=== PATIENT | female | born 2000 ===

== ENCOUNTER 2023-02-11 15:41 | Outpatient (BNV) | payer MEDICAID, SELFPAY | END 2023-02-14 09:00 | PROVIDERS: Admitting Provider Psychiatry & Neurology Psychiatry; PCP Internal Medicine; Visit Provider Internal Medicine | DX: I45.81 Long QT syndrome (principal) | CPT/HCPCS: 93010 ==

== ENCOUNTER 2023-02-11 15:41 | Inpatient (IN) | payer OTHER, SELFPAY ==
[2023-02-11 16:03] VITALS: BP 128/96; PULSE 88; RESP 18; TEMP 36.6; O2SAT 96
--- NOTE | 2023-02-11 18:47 | PC.ADMIT ---
Meche arrived to the unit at 1550, she signed a conditional voluntary. Sharps check done by junior copywriter and female RN. Patient appears internally preoccupied, self dialoguing, when asked how she felt she continue self dialoguing, junior copywriter had to ask her twice before she responded Fine. She reports endorsing depression rated it a 6/10, she reports AVH when asked to elaborate stated Right now they are just talking, when asked if she had any thoughts of wanting to hurt self stated No, verbalized to look for staff if thoughts occur. Throughout the assessment junior copywriter had to ask the questions multiple times as patient is self dialoguing and mumbling. Per assessment patient was evaluated at her home by N after mother requested an assessment. Per assessment patient stopped taking her medications, has not been sleeping, loud self dialoguing and reported command AH telling her to hurt herself.
[2023-02-11] MEDS: hydrOXYzine HCL 25 MG TABLET PO (20:44)
[2023-02-11] MEDS: OLANZapine 5 MG TABLET PO (20:44)
[2023-02-11] MEDS: traZODone HCL 50 MG TABLET PO (20:44)
[2023-02-12 06:00] VITALS: BP 115/57; PULSE 108; RESP 18; O2SAT 97
[2023-02-12 09:15] LABS: Estimated Average Glucose 100 mg/dL; Hemoglobin A1c % 5.1 % (<6.0)
[2023-02-12 09:23] LABS: Cholesterol 173 mg/dL (<200); HDL Cholesterol 37 mg/dL (>40); LDL Cholesterol Calculated 120 mg/dL (<100); Triglycerides 83 mg/dL (<150)
--- NOTE | 2023-02-12 11:31 | HO.PM.IMCN ---
History of Present Illness Data of Consult Service Date: 02/12/23 Requesting physician: Crow Fregoso Primary Care Provider: Nicki Olson MD HPI Reason for consult: medical H&P 22-year-old female without any known significant past medical history admitted to Psychiatry from [facility] ED with consult placed hospitalist service for medical H and P. The patient is engaged in self dialogue and disorganized, and is difficult to redirect, unsure if she is experiencing hallucinations so unsure if history is accurate from patinet. Did review [facility] ED report which did not note any PMH or known psychiatric history. Apparently would not provide any history in the ED. Hematology studies in the ED WNL. Renal function and electrolytes normal. GLucose normal. UTox negative. UA with 2+ leukocytes, negative nitrites, 3+ blood, trace ketones, slightly positive for urinary sediment, and 2+ bacteria. Of note there were >150 squamous epithelial cells. She was not given an abx at [facility]. Called and spoke with ED charge nurse and UC resulted with mixed skin sachin. She does not freely offer any complaints but when asked, does state she has increased urinary frequency and urgency. There does not appear to be any other acute medical issues at this time. Review of Systems Review of Systems: General: No fevers, malaise, unintentional weight loss HEENT: No blurred vision, diplopia. No sore throat, nasal congestion, rhinorrhea, sinus pain, ear pain Cardiovascular: No chest pain, palpitations, or leg edema Respiratory: No shortness of breath, wheezing, cough GI: No abdominal pain, nausea, vomiting, diarrhea : No dysuria, hematuria. +increased urinary frequency, +urgency MSK: No myalgia, back pain Neuro: No headaches, weakness, paresthesias Skin: No rashes or lesions [facility] Medical History No pertinent past medical history Social History Household Members: Unknown / Unable to assess Housing: House Do you presently have visiting nurse or other home services: No Patient Tobacco Use Status: Never used Tobacco Smoked in Last 30 Days: No Patient Interested in Nicotine Replacement: No Patient Given Instructions on How to Stop Smoking: No Second Hand Smoke Exposure: No Use of substances other than those prescribed or required for medical reasons: No Currently Displaying Signs/Symptoms of Drug Intoxication Withdrawal: No Any prior treatment program specific to substance use: No Have you been hit, kicked, punched, or otherwise hurt by someone within the past year? If so, by whom?: No Do you feel safe in your current relationship?: No Current Relationship Is there a partner from a previous relationship who is making you feel unsafe now?: No Are you made to feel afraid or neglected: No Spiritual Healthcare Practices: Shinto Denominational Healthcare Practices: Restorationist Cultural Healthcare Practices: Shinto Advance Directives: No Advance Directives Information Provided: Yes Do you have thoughts of harming others: None Do you have a plan to hurt others: No Plan Recently lost weight without trying: Unsure Eating poorly because of decreased appetite: Yes Nutrition Risks: No Nutritional Risk Patient : No : No Poor oral hygiene: No Meds Allergies Allergy/AdvReac Type Severity Reaction Status Date / Time No Known Allergies Allergy Verified 02/11/23 17:12 Active Medications: Current Medications Acetaminophen (Acetaminophen 325 Mg Tablet) 650 mg PO Q6H PRN PRN Reason: Headache/Pain Mild Scale (1-3) Al Hydroxide/Mg Hydroxide (Magnesium Hydrox/Alum Hydrox 30 Ml Oral.Susp) 30 ml PO Q6H PRN PRN Reason: Heartburn/Nausea Hydroxyzine HCl (Hydroxyzine Hcl 25 Mg Tablet) 25 mg PO Q6H PRN PRN Reason: Anxiety Last Admin: 02/11/23 20:44 Dose: 25 mg Magnesium Hydroxide (Milk Of Magnesia 30 Ml Oral.Susp) 30 ml PO DAILY PRN PRN Reason: Constipation Nicotine (Nicotine 21 Mg Patch.Td24) 21 mg TRANSDERMA DAILY PRN PRN Reason: smoking cessation Nicotine Polacrilex (Nicotine Polacrilex 2 Mg Gum) 4 mg BUCCAL Q2H PRN PRN Reason: Nicotine Cravings Olanzapine (Olanzapine 5 Mg Tablet) 5 mg PO TID PRN PRN Reason: agitation Last Admin: 02/11/23 20:44 Dose: 5 mg Trazodone HCl (Trazodone Hcl 50 Mg Tablet) 50 mg PO BEDTIME MRX1 PRN PRN Reason: Insomnia Last Admin: 02/11/23 20:44 Dose: 50 mg Home Medications Medication Instructions Recorded Confirmed Last Taken Type lamotrigine 25 mg tablet 50 mg PO DAILY 02/11/23 02/11/23 Unknown History sertraline 50 mg tablet 50 mg PO DAILY 02/11/23 02/11/23 Unknown History triamcinolone acetonide 0.025 % appl topical BID 02/11/23 Unknown History topical cream Physical Exam Vital Signs and Narrative: Vital Signs: Last Vital Signs Temp 97.8 F 02/11/23 16:03 Pulse 108 H 02/12/23 06:00 Resp 18 02/12/23 06:00 BP 115/57 L 02/12/23 06:00 Pulse Ox 97 02/12/23 06:00 O2 Del Method Room Air 02/12/23 06:00 Constitutional - Awake and Alert, No apparent distress Eyes - PERRLA, EOMI Cardiovascular - S1S2, RRR, No edema Respiratory - Normal lung expansion, Normal respiratory effort, No respiratory distress, CTA bilaterally Gastrointestinal - NT / ND; +BS; No rebound or guarding Extremities - no calf tenderness bilaterally, no swelling Musculoskeletal - Normal inspection, normal ROM Skin - Warm/Dry Neurological - Alert & oriented xto self and time. Requires frequent redirection, CN II-XII in tact, 5/5 strength BUE and BLE, symmetric 2+ patellar reflexes, downgoing Babinski Psychological - engaged in self dialogue, disorganized Results Labs Labs: Laboratory Results - last 24 hr 02/12/23 08:54 Estimat Average Glucose 100 Hemoglobin A1c % 5.1 Triglycerides 83 Cholesterol 173 LDL Cholesterol, Calc 120 H HDL Cholesterol 37 L Assessment and Plan (1) Routine medical exam: Status: Acute (2) Increased urinary frequency: Status: Acute Plan 22-year-old female without any known significant past medical history admitted to Psychiatry from [facility] ED with consult placed hospitalist service for medical H and P. #Mood disorder/psychosis -plan per psychiatry #?UTI -UA at [facility] with 2+ leukocytes, negative nitrites, 3+ blood, trace ketones, slightly positive for urinary sediment, 2+ bacteria. However with >150 epith skin cells. UC contaminated with normal sachin -Given she endorses frequency and urgency -Recheck UA/UC, ensure clean catch -Also check urine for gonorrhea/chlamydia using dirty catch -hold any antibiotic therapy for now. Await cultures ED chart reviewed as above. Thank you for allowing me to participate in this consult. Will follow for results. Please not hesitate to reach out with any questions or for any acute medical issues.
[2023-02-12 15:15] LABS: Appearance Urine Clear; Color Urine Yellow; Glucose Urine UA Negative (Negative); Leukocyte Esterase Urine Trace (Negative); Nitrite Urine Negative (Negative); PH 5.5 (5.0-9.0); UMIC TRIGGER UACC YES; Urine Blood Negative (Negative); Urine Ketones Negative (Negative); Urine Protein Negative (Neg-Trace)
[2023-02-12 15:18] LABS: Bacteria Urine None Seen (None Seen); Hyaline Casts Urine 0-2 /LPF (0-2); RBC Urine 0-2 /HPF (0-2); WBC Urine 0-5 /HPF (0-5)
[2023-02-12 16:13] VITALS: BP 133/84; PULSE 74; TEMP 36.5; O2SAT 98
--- NOTE | 2023-02-12 17:18 | PM.PSYDC ---
DS: Providers Provider Date of admission: 02/11/23 15:41 Primary care physician: Nicki Olson MD Consults: 02/11/23 17:12 Consult to Hospitalist Routine Comment: Consulting Provider: Hospitalist Reason For Exam: admission physical DS: Diagnosis Discharge Diagnosis (1) Routine medical exam: Status: Acute (2) Increased urinary frequency: Status: Acute DS: Medications Discharge Medications Home Medications: Home Medications Medication Instructions Recorded Confirmed lamotrigine 25 mg tablet 50 mg PO DAILY 02/11/23 02/11/23 sertraline 50 mg tablet 50 mg PO DAILY 02/11/23 02/11/23 triamcinolone acetonide 0.025 % appl topical BID 02/11/23 topical cream Data Data Completed and Pending Completed studies during hospitalization [Text1]: 02/12/23 02/12/23 08:54 14:57 Estimat Average Glucose 100 Hemoglobin A1c % 5.1 Triglycerides 83 Cholesterol 173 LDL Cholesterol, Calc 120 H HDL Cholesterol 37 L Urine Color Yellow Urine Appearance Clear Urine pH 5.5 Ur Specific [place] 1.020 Urine Protein Negative Urine Glucose (UA) Negative Urine Ketones Negative Urine Blood Negative Urine Nitrite Negative Ur Leukocyte Esterase Trace H Urine RBC 0-2 Urine WBC 0-5 Ur Squamous Epith Cells 3-5 Urine Bacteria None Seen Hyaline Casts 0-2 Chlam trachomat DNA PCR Pending N.gonorrhoeae DNA (PCR) Pending DS: Summary Time Spent with Patient Time attestation: Total time managing care of this patient today ____ minutes. Discharge Plan Discharge Referrals: Nicki Olson MD [Primary Care Provider] - 1 Week Discharge Medications: No Action lamotrigine 25 mg tablet 50 mg PO DAILY triamcinolone acetonide 0.025 % cream TOPICAL BID sertraline 50 mg tablet 50 mg PO DAILY
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
[2023-02-12] MEDS: lamoTRIgine 25 MG TABLET 50 MG PO (19:06)
[2023-02-12] MEDS: traZODone HCL 50 MG TABLET PO (20:12)
[2023-02-12] MEDS: hydrOXYzine HCL 25 MG TABLET PO (20:12)
[2023-02-12] MEDS: OLANZapine 5 MG TABLET PO (20:12)
[2023-02-12] MEDS: Acetaminophen 325 MG TABLET 650 MG PO (20:12)
[2023-02-13 05:53] LABS: CT PCR NOT DETECTED (Not Detect.); NG PCR NOT DETECTED (Not Detect.)
[2023-02-13 08:05] VITALS: BP 127/74; PULSE 86; RESP 16; TEMP 36.5; O2SAT 99
[2023-02-13] MEDS: lamoTRIgine 25 MG TABLET 50 MG PO (08:30)
[2023-02-13] MEDS: Sertraline HCL 50 MG TABLET PO (08:30)
[2023-02-13] MEDS: Acetaminophen 325 MG TABLET 650 MG PO (09:03)
--- NOTE | 2023-02-13 12:17 | PM.EVENT ---
Event Note Date of Service: 02/13/23 Event Note: UA negative for UTI. Patient also tested negative for chlamydia and gonorrhea. There is no indication for any treatment at this time with antibiotics. Time Spent With Patient Time: Total time managing care of this patient today ____ minutes.
[2023-02-13 16:16] VITALS: BP 140/87; PULSE 71; TEMP 36.4; O2SAT 99
--- NOTE | 2023-02-13 18:30 | P.PNPSI_ITS ---
Subjective Subjective Date of Service: 02/13/23 Reason For Visit: crisis Subjective Notes: Conditional Voluntary Healthcare Proxy: No Guardianship: No Medical Problems Affecting Mental Status: No Interim History: Pt appropriate, bright, asks if we can arrange for a chocolate lab service dog . Discussed. She reflected on a previous emotional support dog she had and missing him along with how helpful having this millinery copyist was for her. Visable in milieu,pt met with her mom and team to provide more history. Tolerating medications. 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 Clearly still responding to internal stimuli. Review of records, pt had a Vraylar start at the end of November but did not maintain this dosing. She reports she does not recall it. Medication Compliance: Yes Side effects from medications: No Attending Groups: Intermittent Review of Systems Acute medical concerns: No Medical Review of Systems: unchanged Review of Systems Review of Systems Yes all other systems are reviewed and are negative (denies) Mental Status Exam Mental Status Exam Patient Appearance: Fatigued Patient Orientation: Person, Place, Time and Situation Level of Consciousness: Alert Patient Behavior: Guarded, Talkative, Cooperative, Suspicious, Avoidant and Good Eye Contact Mood Description: Constricted Affect Description: Constricted Patient Cognition Impaired: No Ability to Follow Directions: Good Speech Pattern: Spontaneous Speech Memory Description: Episodic Impaired Hallucinations: Auditory Delusions: Paranoid Ideation and Present Perceptual Disturbances: Depersonalization and Derealization Thought Process: Distracted Thought Content: positive for Perseveration Depressive Symptoms: Thoughts of /Suicide (denies) Judgement: Fair Diagnostics Vital Signs (24Hr): Vital Signs - 24 hr 02/13/23 08:05 02/13/23 16:16 Temperature 97.7 F 97.6 F Pulse Rate 86 71 Respiratory Rate 16 Blood Pressure 127/74 140/87 H Pulse Oximetry 99 99 Oxygen Delivery Method Room Air Room Air Labs Labs: Laboratory Results - last 48 hr 02/12/23 02/12/23 08:54 14:57 Estimat Average Glucose 100 Hemoglobin A1c % 5.1 Triglycerides 83 Cholesterol 173 LDL Cholesterol, Calc 120 H HDL Cholesterol 37 L Urine Color Yellow Urine Appearance Clear Urine pH 5.5 Ur Specific [place] 1.020 Urine Protein Negative Urine Glucose (UA) Negative Urine Ketones Negative Urine Blood Negative Urine Nitrite Negative Ur Leukocyte Esterase Trace H Urine RBC 0-2 Urine WBC 0-5 Ur Squamous Epith Cells 3-5 Urine Bacteria None Seen Hyaline Casts 0-2 Chlam trachomat DNA PCR NOT DETECTED N.gonorrhoeae DNA (PCR) NOT DETECTED Medications Medications Current Medications Acetaminophen (Acetaminophen 325 Mg Tablet) 650 mg PO Q6H PRN PRN Reason: Headache/Pain Mild Scale (1-3) Last Admin: 02/13/23 09:03 Dose: 650 mg Al Hydroxide/Mg Hydroxide (Magnesium Hydrox/Alum Hydrox 30 Ml Oral.Susp) 30 ml PO Q6H PRN PRN Reason: Heartburn/Nausea Hydroxyzine HCl (Hydroxyzine Hcl 25 Mg Tablet) 25 mg PO Q6H PRN PRN Reason: Anxiety Last Admin: 02/12/23 20:12 Dose: 25 mg Lamotrigine (Lamotrigine 25 Mg Tablet) 50 mg PO DAILY [facility] Last Admin: 02/13/23 08:30 Dose: 50 mg Magnesium Hydroxide (Milk Of Magnesia 30 Ml Oral.Susp) 30 ml PO DAILY PRN PRN Reason: Constipation Nicotine (Nicotine 21 Mg Patch.Td24) 21 mg TRANSDERMA DAILY PRN PRN Reason: smoking cessation Nicotine Polacrilex (Nicotine Polacrilex 2 Mg Gum) 4 mg BUCCAL Q2H PRN PRN Reason: Nicotine Cravings Olanzapine (Olanzapine 5 Mg Tablet) 5 mg PO TID PRN PRN Reason: agitation Last Admin: 02/12/23 20:12 Dose: 5 mg Sertraline HCl (Sertraline Hcl 50 Mg Tablet) 50 mg PO DAILY [facility] Last Admin: 02/13/23 08:30 Dose: 50 mg Trazodone HCl (Trazodone Hcl 50 Mg Tablet) 50 mg PO BEDTIME MRX1 PRN PRN Reason: Insomnia Last Admin: 02/12/23 20:12 Dose: 50 mg Allergies Allergies Allergy/AdvReac Type Severity Reaction Status Date / Time No Known Allergies Allergy Verified 02/11/23 17:12 Assessment & Plan Assessment & Plan (1) Schizoaffective disorder: Status: Acute Code(s): F25.9 - Schizoaffective disorder, unspecified (2) PTSD (post-traumatic stress disorder): Status: Acute Code(s): F43.10 - Post-traumatic stress disorder, unspecified Plan 22 yo female, history of probable schizoaffective disorder, PTSD, exhibiting psychotic symptoms and agitation at her home with family. Reports she takes Lamictal/Sertraline which we will initiate today. Plan: Collateral Contact Initiate Lamictal, Sertraline Monitor and probable antipsychotic initiation on 02/1302/13/23 Low carb diet-pt request Abilify 10 mg daily TSH, B12, Folate, EKG Informed Consent: understands Reason for continued inpatient stay Substantial Risk for: harm to self, harm to others, inability to function and rapid decompensation Time Spent With Patient Time: Total time managing care of this patient today ____ minutes.
[2023-02-13] MEDS: hydrOXYzine HCL 25 MG TABLET PO (20:21)
[2023-02-13] MEDS: traZODone HCL 50 MG TABLET PO (20:21)
[2023-02-13] MEDS: OLANZapine 5 MG TABLET PO (20:21)
[2023-02-14] MEDS: lamoTRIgine 25 MG TABLET 50 MG PO (08:36)
[2023-02-14] MEDS: Sertraline HCL 50 MG TABLET PO (08:36)
[2023-02-14] MEDS: ARIPiprazole 10 MG TABLET PO (08:36)
[2023-02-14 09:00] VITALS: BP 135/97; PULSE 111; RESP 16; TEMP 36.6; O2SAT 97
--- NOTE | 2023-02-14 09:00 | ECG_ITS ---
Test Reason : qtc check Blood Pressure : / mmHG Vent. Rate : 084 BPM Atrial Rate : 084 BPM P-R Int : 116 ms QRS Dur : 080 ms QT Int : 368 ms P-R-T Axes : 031 048 029 degrees QTc Int : 434 ms Normal sinus rhythm Normal ECG No previous ECGs available Referred By: Jolie Zapata Electronically Signed By:KESHAWN LANGSTON
[2023-02-14 09:31] LABS: Thyroid Stimulating Hormone 0.84 uIU/mL (0.32-4.0)
--- NOTE | 2023-02-14 09:50 | P.PNPSI_ITS ---
Subjective Subjective Date of Service: 02/14/23 Reason For Visit: crisis Subjective Notes: Conditional Voluntary Interim History: Reviewed with . Patient presents calm, cooperative, friendly but guarded. Patient stated, I feel okay. It's my grandmother's birthday tomorrow and I thought I'd be out by now since I've been going to groups and good . Observed responding to internal stimuli. Patient reports she hears the Devil day negative things to me . denies SI/HI/VH. Medication Compliance: Yes Side effects from medications: No Review of Systems Constitutional: Reports as per HPI Eyes: Reports as per HPI Reports as per HPI Cardiovascular: Reports as per HPI Respiratory: Reports as per HPI Gastrointestinal: Reports as per HPI Genitourinary: Reports as per HPI Musculoskeletal: Reports as per HPI Skin/Breast: Reports as per HPI Reports as per HPI Psychiatric: Reports as per HPI Endocrine: Reports as per HPI Hematologic/Lymphatic: Reports as per HPI Allergic/Immunologic: Reports as per HPI Mental Status Exam Mental Status Exam Narrative: Pt is alert and oriented; behavior is cooperative, friendly and calm, guarded; dressed in casual attire; mood is described as good ; eye contact appropriate; Speech is normal rate, volume and prosody and not pressured; no psychomotor agitation/retardation present; thought process is organized; Thought content is on discharge; denies SI/HI. Observed responding to internal stimuli; states she hears the devil say negative things . denies VH. Diagnostics Vital Signs (24Hr): Vital Signs - 24 hr 02/13/23 16:16 02/14/23 09:00 Temperature 97.6 F 97.8 F Pulse Rate 71 111 H Respiratory Rate 16 Blood Pressure 140/87 H 135/97 H Pulse Oximetry 99 97 Oxygen Delivery Method Room Air Room Air Labs Labs: Laboratory Results - last 48 hr 02/12/23 02/14/23 14:57 08:41 TSH 0.84 Urine Color Yellow Urine Appearance Clear Urine pH 5.5 Ur Specific [place] 1.020 Urine Protein Negative Urine Glucose (UA) Negative Urine Ketones Negative Urine Blood Negative Urine Nitrite Negative Ur Leukocyte Esterase Trace H Urine RBC 0-2 Urine WBC 0-5 Ur Squamous Epith Cells 3-5 Urine Bacteria None Seen Hyaline Casts 0-2 Chlam trachomat DNA PCR NOT DETECTED N.gonorrhoeae DNA (PCR) NOT DETECTED Medications Medications Current Medications Acetaminophen (Acetaminophen 325 Mg Tablet) 650 mg PO Q6H PRN PRN Reason: Headache/Pain Mild Scale (1-3) Last Admin: 02/13/23 09:03 Dose: 650 mg Al Hydroxide/Mg Hydroxide (Magnesium Hydrox/Alum Hydrox 30 Ml Oral.Susp) 30 ml PO Q6H PRN PRN Reason: Heartburn/Nausea Aripiprazole (Aripiprazole 10 Mg Tablet) 10 mg PO DAILY [facility] Last Admin: 02/14/23 08:36 Dose: 10 mg Hydroxyzine HCl (Hydroxyzine Hcl 25 Mg Tablet) 25 mg PO Q6H PRN PRN Reason: Anxiety Last Admin: 02/13/23 20:21 Dose: 25 mg Lamotrigine (Lamotrigine 25 Mg Tablet) 50 mg PO DAILY [facility] Last Admin: 02/14/23 08:36 Dose: 50 mg Magnesium Hydroxide (Milk Of Magnesia 30 Ml Oral.Susp) 30 ml PO DAILY PRN PRN Reason: Constipation Nicotine (Nicotine 21 Mg Patch.Td24) 21 mg TRANSDERMA DAILY PRN PRN Reason: smoking cessation Nicotine Polacrilex (Nicotine Polacrilex 2 Mg Gum) 4 mg BUCCAL Q2H PRN PRN Reason: Nicotine Cravings Olanzapine (Olanzapine 5 Mg Tablet) 5 mg PO TID PRN PRN Reason: agitation Last Admin: 02/13/23 20:21 Dose: 5 mg Sertraline HCl (Sertraline Hcl 50 Mg Tablet) 50 mg PO DAILY [facility] Last Admin: 02/14/23 08:36 Dose: 50 mg Trazodone HCl (Trazodone Hcl 50 Mg Tablet) 50 mg PO BEDTIME MRX1 PRN PRN Reason: Insomnia Last Admin: 02/13/23 20:21 Dose: 50 mg Allergies Allergies Allergy/AdvReac Type Severity Reaction Status Date / Time No Known Allergies Allergy Verified 02/11/23 17:12 Assessment & Plan Assessment & Plan (1) Schizoaffective disorder: Status: Acute Code(s): F25.9 - Schizoaffective disorder, unspecified (2) PTSD (post-traumatic stress disorder): Status: Acute Code(s): F43.10 - Post-traumatic stress disorder, unspecified Plan 22 yo female, history of probable schizoaffective disorder, PTSD, exhibiting psychotic symptoms and agitation at her home with family. Reports she takes Lamictal/Sertraline which we will initiate today. Plan: Collateral Contact Initiate Lamictal, Sertraline Monitor and probable antipsychotic initiation on 02/1302/13/23 Low carb diet-pt request Abilify 10 mg daily TSH, B12, Folate, EKG 02/14: Patient presents calm, cooperative, friendly but guarded. Patient stated, I feel okay. It's my grandmother's birthday tomorrow and I thought I'd be out by now since I've been going to groups and good . Observed responding to internal stimuli. Patient reports she hears the day negative things to me . denies SI/HI/VH. Continue current tx plan. Patient educated on: diagnosis, medication risk/benefits and therapeutic strategies Informed Consent: understands Reason for continued inpatient stay Substantial Risk for: med/psych decompensation Time Spent With Patient Time: Total time managing care of this patient today _30___ minutes.
[2023-02-14 10:29] LABS: Folate 8.7 ng/mL (> or = 4.0); Vitamin B12 554 pg/mL (200-900)
--- NOTE | 2023-02-14 11:17 | MHC.CLN ---
NUTRITION PER PROVIDER CONSULT, PATIENT REQUESTING A LOW CARBOHYDRATE DIET. NO IN-PERSON MEETING PER CONSULT. 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 MENUS BEING COMPLETED ON THE UNIT.
[2023-02-14 17:10] VITALS: BP 128/74; PULSE 112; RESP 16; TEMP 36.4; O2SAT 100
[2023-02-15] MEDS: traZODone HCL 50 MG TABLET PO ×2 (02:08→21:54)
[2023-02-15] MEDS: lamoTRIgine 25 MG TABLET 50 MG PO (08:39)
[2023-02-15] MEDS: Sertraline HCL 50 MG TABLET PO (08:39)
[2023-02-15] MEDS: ARIPiprazole 10 MG TABLET PO (08:39)
[2023-02-15 08:50] VITALS: BP 137/89; PULSE 110; RESP 16; TEMP 36.5; O2SAT 98
--- NOTE | 2023-02-15 11:06 | HO.PSYCHPN ---
Subjective Subjective Date of Service: 02/15/23 Reason For Visit: crisis Subjective Notes: Conditional Voluntary Interim History: Patient was seen and discussed in rounds today. Records and plans were reviewed. She denies any symptoms of depression but continues to be anxious, 05/17. She is medication compliant. No AVH. Disorganized. Questions about Klonopin discussed. No changes were made today Mental Status Exam Mental Status Exam Narrative: In today's visit she is alert, pleasant and cooperative. Normal speech. Some eye contact. Affect is appropriate and constricted. She is observed to respond to internal stimuli but denies any hallucinations. No SI. Cognitively she has organized thought processes. Judgment and Diagnostics Vital Signs (24Hr): Vital Signs - 24 hr 02/14/23 17:10 02/15/23 08:50 Temperature 97.5 F 97.7 F Pulse Rate 112 H 110 H Respiratory Rate 16 16 Blood Pressure 128/74 137/89 Pulse Oximetry 100 98 Oxygen Delivery Method Room Air Room Air Labs Labs: Laboratory Results - last 48 hr 02/14/23 08:41 Vitamin B12 554 Folate 8.7 TSH 0.84 Medications Medications Current Medications Acetaminophen (Acetaminophen 325 Mg Tablet) 650 mg PO Q6H PRN PRN Reason: Headache/Pain Mild Scale (1-3) Last Admin: 02/13/23 09:03 Dose: 650 mg Al Hydroxide/Mg Hydroxide (Magnesium Hydrox/Alum Hydrox 30 Ml Oral.Susp) 30 ml PO Q6H PRN PRN Reason: Heartburn/Nausea Aripiprazole (Aripiprazole 10 Mg Tablet) 10 mg PO DAILY [facility] Last Admin: 02/15/23 08:39 Dose: 10 mg Hydroxyzine HCl (Hydroxyzine Hcl 25 Mg Tablet) 25 mg PO Q6H PRN PRN Reason: Anxiety Last Admin: 02/13/23 20:21 Dose: 25 mg Lamotrigine (Lamotrigine 25 Mg Tablet) 50 mg PO DAILY [facility] Last Admin: 02/15/23 08:39 Dose: 50 mg Magnesium Hydroxide (Milk Of Magnesia 30 Ml Oral.Susp) 30 ml PO DAILY PRN PRN Reason: Constipation Nicotine (Nicotine 21 Mg Patch.Td24) 21 mg TRANSDERMA DAILY PRN PRN Reason: smoking cessation Nicotine Polacrilex (Nicotine Polacrilex 2 Mg Gum) 4 mg BUCCAL Q2H PRN PRN Reason: Nicotine Cravings Olanzapine (Olanzapine 5 Mg Tablet) 5 mg PO TID PRN PRN Reason: agitation Last Admin: 02/13/23 20:21 Dose: 5 mg Sertraline HCl (Sertraline Hcl 50 Mg Tablet) 50 mg PO DAILY [facility] Last Admin: 02/15/23 08:39 Dose: 50 mg Trazodone HCl (Trazodone Hcl 50 Mg Tablet) 50 mg PO BEDTIME MRX1 PRN PRN Reason: Insomnia Last Admin: 02/15/23 02:08 Dose: 50 mg Allergies Allergies Allergy/AdvReac Type Severity Reaction Status Date / Time No Known Allergies Allergy Verified 02/11/23 17:12 Assessment & Plan Assessment & Plan (1) Schizoaffective disorder: Status: Acute Code(s): F25.9 - Schizoaffective disorder, unspecified (2) PTSD (post-traumatic stress disorder): Status: Acute Code(s): F43.10 - Post-traumatic stress disorder, unspecified Plan 22 yo female, history of probable schizoaffective disorder, PTSD, exhibiting psychotic symptoms and agitation at her home with family. Reports she takes Lamictal/Sertraline which we will initiate today. Plan: Collateral Contact Initiate Lamictal, Sertraline Monitor and probable antipsychotic initiation on 02/1302/13/23 Low carb diet-pt request Abilify 10 mg daily TSH, B12, Folate, EKG 02/14: Patient presents calm, cooperative, friendly but guarded. Patient stated, I feel okay. It's my grandmother's birthday tomorrow and I thought I'd be out by now since I've been going to groups and good . Observed responding to internal stimuli. Patient reports she hears the Devil day negative things to me . denies SI/HI/VH. Continue current tx plan. 02/15: Continue current plans and regimen Reason for continued inpatient stay Substantial Risk for: med/psych decompensation Time Spent With Patient Time: Total time managing care of this patient today ____ minutes.
[2023-02-15 18:29] VITALS: BP 131/59; PULSE 86; RESP 18; TEMP 36.6; O2SAT 100
[2023-02-15] MEDS: Acetaminophen 325 MG TABLET 650 MG PO (19:41)
[2023-02-15] MEDS: OLANZapine 5 MG TABLET PO (22:58)
[2023-02-16] MEDS: hydrOXYzine HCL 25 MG TABLET PO (01:30)
[2023-02-16] MEDS: traZODone HCL 50 MG TABLET PO (01:30)
[2023-02-16] MEDS: ARIPiprazole 10 MG TABLET PO (09:58)
[2023-02-16] MEDS: Sertraline HCL 50 MG TABLET PO (09:58)
[2023-02-16] MEDS: lamoTRIgine 25 MG TABLET 50 MG PO (09:58)
[2023-02-16 10:00] VITALS: BP 146/74; PULSE 106; RESP 16; TEMP 36.4; O2SAT 100
--- NOTE | 2023-02-16 11:33 | P.PNPSI_ITS ---
Subjective Subjective Date of Service: 02/16/23 Reason For Visit: crisis Subjective Notes: Conditional Voluntary Interim History: Patient was seen and discussed in rounds today. Records and plans were reviewed. She has been stable, mostly isolative to her room and withdrawn. She does have some self dialogue and having response to internal stimuli. She denies any auditory hallucinations though. She wanted to talk about her sleep which we did and she is sleeping 8 hours and I did not recommend any medication changes which she was wondering about. Review of Systems Review of Systems Yes all other systems are reviewed and are negative Mental Status Exam Mental Status Exam Narrative: In today's visit she is alert, pleasant and cooperative. Normal speech. Some eye contact. Affect is appropriate and constricted. She is observed to respond to internal stimuli but denies any hallucinations. No SI. Cognitively she has organized thought processes. Judgment and Diagnostics Vital Signs (24Hr): Vital Signs - 24 hr 02/15/23 18:29 Temperature 97.9 F Pulse Rate 86 Respiratory Rate 18 Blood Pressure 131/59 L Pulse Oximetry 100 Oxygen Delivery Method Room Air Medications Medications Current Medications Acetaminophen (Acetaminophen 325 Mg Tablet) 650 mg PO Q6H PRN PRN Reason: Headache/Pain Mild Scale (1-3) Last Admin: 02/15/23 19:41 Dose: 650 mg Al Hydroxide/Mg Hydroxide (Magnesium Hydrox/Alum Hydrox 30 Ml Oral.Susp) 30 ml PO Q6H PRN PRN Reason: Heartburn/Nausea Aripiprazole (Aripiprazole 10 Mg Tablet) 10 mg PO DAILY [facility] Last Admin: 02/16/23 09:58 Dose: 10 mg Hydroxyzine HCl (Hydroxyzine Hcl 25 Mg Tablet) 25 mg PO Q6H PRN PRN Reason: Anxiety Last Admin: 02/16/23 01:30 Dose: 25 mg Lamotrigine (Lamotrigine 25 Mg Tablet) 50 mg PO DAILY [facility] Last Admin: 02/16/23 09:58 Dose: 50 mg Magnesium Hydroxide (Milk Of Magnesia 30 Ml Oral.Susp) 30 ml PO DAILY PRN PRN Reason: Constipation Nicotine (Nicotine 21 Mg Patch.Td24) 21 mg TRANSDERMA DAILY PRN PRN Reason: smoking cessation Nicotine Polacrilex (Nicotine Polacrilex 2 Mg Gum) 4 mg BUCCAL Q2H PRN PRN Reason: Nicotine Cravings Olanzapine (Olanzapine 5 Mg Tablet) 5 mg PO TID PRN PRN Reason: agitation Last Admin: 02/15/23 22:58 Dose: 5 mg Sertraline HCl (Sertraline Hcl 50 Mg Tablet) 50 mg PO DAILY [facility] Last Admin: 02/16/23 09:58 Dose: 50 mg Trazodone HCl (Trazodone Hcl 50 Mg Tablet) 50 mg PO BEDTIME MRX1 PRN PRN Reason: Insomnia Last Admin: 02/16/23 01:30 Dose: 50 mg Allergies Allergies Allergy/AdvReac Type Severity Reaction Status Date / Time No Known Allergies Allergy Verified 02/11/23 17:12 Assessment & Plan Assessment & Plan (1) Schizoaffective disorder: Status: Acute Code(s): F25.9 - Schizoaffective disorder, unspecified (2) PTSD (post-traumatic stress disorder): Status: Acute Code(s): F43.10 - Post-traumatic stress disorder, unspecified Plan 22 yo female, history of probable schizoaffective disorder, PTSD, exhibiting psychotic symptoms and agitation at her home with family. Reports she takes Lamictal/Sertraline which we will initiate today. Plan: Collateral Contact Initiate Lamictal, Sertraline Monitor and probable antipsychotic initiation on 02/1302/13/23 Low carb diet-pt request Abilify 10 mg daily TSH, B12, Folate, EKG 02/14: Patient presents calm, cooperative, friendly but guarded. Patient stated, I feel okay. It's my grandmother's birthday tomorrow and I thought I'd be out by now since I've been going to groups and good . Observed responding to internal stimuli. Patient reports she hears the Devil day negative things to me . denies SI/HI/VH. Continue current tx plan. 02/15: Continue current plans and regimen 02/15: Continue current regimen and plans Reason for continued inpatient stay Substantial Risk for: med/psych decompensation Time Spent With Patient Time: Total time managing care of this patient today ____ minutes.
[2023-02-16 18:00] VITALS: BP 98/47; PULSE 102; TEMP 36.6; O2SAT 100
[2023-02-16] MEDS: OLANZapine 5 MG TABLET PO (19:05)
[2023-02-17] MEDS: traZODone HCL 50 MG TABLET PO ×2 (00:57→21:10)
[2023-02-17 08:00] VITALS: BP 102/52; PULSE 106; TEMP 36.5; O2SAT 98
[2023-02-17] MEDS: lamoTRIgine 25 MG TABLET 50 MG PO (09:42)
[2023-02-17] MEDS: ARIPiprazole 10 MG TABLET PO (09:42)
[2023-02-17] MEDS: Sertraline HCL 50 MG TABLET PO (09:42)
[2023-02-17] MEDS: Acetaminophen 325 MG TABLET 650 MG PO ×2 (09:49→19:24)
[2023-02-17 16:00] VITALS: BP 153/82; PULSE 100; TEMP 36.5; O2SAT 94
--- NOTE | 2023-02-17 18:22 | P.PNPSI_ITS ---
Subjective Subjective Date of Service: 02/17/23 Reason For Visit: crisis Subjective Notes: 3 Day Healthcare Proxy: No Guardianship: No Medical Problems Affecting Mental Status: No Interim History: Three day notice to 02/19. Pt planning to live with her boyfriend, Chris, states she will not go to [place]. Mother visited and was able to offer her opinion that she finds pt at baseline. She asked pt when discharged to return to the family home for the holiday season, allow parents to meet her boyfriend, monitor her ongoing recovery, and re-establish her routine. Pt agreed, citing this plan to be solid, reasonable Message left for prescriber, Aditi Kidd [phone]. Medication Compliance: Yes Side effects from medications: No Attending Groups: Intermittent Review of Systems Acute medical concerns: No Medical Review of Systems: unchanged Review of Systems Review of Systems Yes all other systems are reviewed and are negative Mental Status Exam Mental Status Exam Patient Appearance: Appropriate Patient Orientation: Person, Place, Time and Situation Level of Consciousness: Alert Patient Behavior: Cooperative, Anxious, Distractible and Good Eye Contact Mood Description: Anxious, Elated and Apprehensive Affect Description: Apprehensive Patient Cognition Impaired: No Ability to Follow Directions: Good Speech Pattern: Spontaneous Speech Memory Description: Episodic Impaired Hallucinations: None Delusions: Not Present Thought Process: Distracted Thought Content: positive for Circumstantial, positive for Loose Associations and positive for Tangential Depressive Symptoms: Increased Anxiety Judgement: Fair Diagnostics Vital Signs (24Hr): Vital Signs - 24 hr 02/17/23 08:00 Temperature 97.7 F Pulse Rate 106 H Blood Pressure 102/52 L Pulse Oximetry 98 Oxygen Delivery Method Room Air Medications Medications Current Medications Acetaminophen (Acetaminophen 325 Mg Tablet) 650 mg PO Q6H PRN PRN Reason: Headache/Pain Mild Scale (1-3) Last Admin: 02/17/23 09:49 Dose: 650 mg Al Hydroxide/Mg Hydroxide (Magnesium Hydrox/Alum Hydrox 30 Ml Oral.Susp) 30 ml PO Q6H PRN PRN Reason: Heartburn/Nausea Aripiprazole (Aripiprazole 10 Mg Tablet) 10 mg PO DAILY [facility] Last Admin: 02/17/23 09:42 Dose: 10 mg Hydroxyzine HCl (Hydroxyzine Hcl 25 Mg Tablet) 25 mg PO Q6H PRN PRN Reason: Anxiety Last Admin: 02/16/23 01:30 Dose: 25 mg Lamotrigine (Lamotrigine 25 Mg Tablet) 50 mg PO DAILY [facility] Last Admin: 02/17/23 09:42 Dose: 50 mg Magnesium Hydroxide (Milk Of Magnesia 30 Ml Oral.Susp) 30 ml PO DAILY PRN PRN Reason: Constipation Nicotine (Nicotine 21 Mg Patch.Td24) 21 mg TRANSDERMA DAILY PRN PRN Reason: smoking cessation Nicotine Polacrilex (Nicotine Polacrilex 2 Mg Gum) 4 mg BUCCAL Q2H PRN PRN Reason: Nicotine Cravings Olanzapine (Olanzapine 5 Mg Tablet) 5 mg PO TID PRN PRN Reason: agitation Last Admin: 02/16/23 19:05 Dose: 5 mg Sertraline HCl (Sertraline Hcl 50 Mg Tablet) 50 mg PO DAILY [facility] Last Admin: 02/17/23 09:42 Dose: 50 mg Trazodone HCl (Trazodone Hcl 50 Mg Tablet) 50 mg PO BEDTIME MRX1 PRN PRN Reason: Insomnia Last Admin: 02/17/23 00:57 Dose: 50 mg Allergies Allergies Allergy/AdvReac Type Severity Reaction Status Date / Time No Known Allergies Allergy Verified 02/11/23 17:12 Assessment & Plan Assessment & Plan (1) Schizoaffective disorder: Status: Acute Code(s): F25.9 - Schizoaffective disorder, unspecified (2) PTSD (post-traumatic stress disorder): Status: Acute Code(s): F43.10 - Post-traumatic stress disorder, unspecified Plan 22 yo female, history of probable schizoaffective disorder, PTSD, exhibiting psychotic symptoms and agitation at her home with family. Reports she takes Lamictal/Sertraline which we will initiate today. Plan: Collateral Contact Initiate Lamictal, Sertraline Monitor and probable antipsychotic initiation on 02/1302/13/23 Low carb diet-pt request Abilify 10 mg daily TSH, B12, Folate, EKG 02/14: Patient presents calm, cooperative, friendly but guarded. Patient stated, I feel okay. It's my grandmother's birthday tomorrow and I thought I'd be out by now since I've been going to groups and good . Observed responding to internal stimuli. Patient reports she hears the Devil day negative things to me . denies SI/HI/VH. Continue current tx plan. 02/15: Continue current plans and regimen 02/15: Continue current regimen and plans 02/17:TDN 02/19. Continue current regime and plan of care. Informed Consent: further education needed Reason for continued inpatient stay Substantial Risk for: rapid decompensation Time Spent With Patient Time: Total time managing care of this patient today ____ minutes.
[2023-02-18] MEDS: OLANZapine 5 MG TABLET PO (03:42)
[2023-02-18] MEDS: HaloperidoL 5 MG TABLET PO (05:50)
[2023-02-18] MEDS: LORazepam 1 MG TABLET 2 MG PO (05:50)
[2023-02-18 10:35] VITALS: BP 124/70; PULSE 96; RESP 18; TEMP 36.9; O2SAT 98
[2023-02-18] MEDS: ARIPiprazole 10 MG TABLET PO (10:38)
[2023-02-18] MEDS: Sertraline HCL 50 MG TABLET PO (10:38)
[2023-02-18] MEDS: lamoTRIgine 25 MG TABLET 50 MG PO (10:38)
--- NOTE | 2023-02-18 15:56 | HO.PSYCHPN ---
Subjective Subjective Date of Service: 02/18/23 Reason For Visit: crisis Subjective Notes: 3 Day Healthcare Proxy: No Guardianship: No Medical Problems Affecting Mental Status: No Interim History: Team reports a difficult night. Pt requiring prn Olanzapine at 342am and prn Haldol at 550am. Team report pt threw a pitcher and was responding to internal stimuli along with THOM Pt sleeping much of the day today. Denies all sx at this time. Three day notice to 02/19 Medication Compliance: Yes Side effects from medications: Yes (sedation) Attending Groups: No Review of Systems Acute medical concerns: No Medical Review of Systems: unchanged Review of Systems Review of Systems Yes Unobtainable due to mental status Mental Status Exam Mental Status Exam Patient Appearance: Fatigued Patient Orientation: Person, Place, Time and Situation Level of Consciousness: Sedated Patient Behavior: Sedated, Fatigued, Distractible, Isolative and Poor Eye Contact Mood Description: Flat Affect Description: Flat Patient Cognition Impaired: No Ability to Follow Directions: Fair Speech Pattern: Spontaneous Speech Memory Description: Episodic Impaired Hallucinations: Auditory Delusions: Not Present Thought Process: Distracted and Goal Oriented Thought Content: positive for Circumstantial, positive for Goal Oriented, positive for Tangential and positive for Suicidal Ideation (denies) Depressive Symptoms: Insomnia, Increased Irritability, Difficulty Sleeping, Increased Fatigue and Loss of Energy Judgement: Fair Diagnostics Vital Signs (24Hr): Vital Signs - 24 hr 02/17/23 16:00 02/18/23 10:35 Temperature 97.7 F 98.4 F Pulse Rate 100 96 Respiratory Rate 18 Blood Pressure 153/82 H 124/70 Pulse Oximetry 94 98 Oxygen Delivery Method Room Air Room Air Medications Medications Current Medications Acetaminophen (Acetaminophen 325 Mg Tablet) 650 mg PO Q6H PRN PRN Reason: Headache/Pain Mild Scale (1-3) Last Admin: 02/17/23 19:24 Dose: 650 mg Al Hydroxide/Mg Hydroxide (Magnesium Hydrox/Alum Hydrox 30 Ml Oral.Susp) 30 ml PO Q6H PRN PRN Reason: Heartburn/Nausea Aripiprazole (Aripiprazole 10 Mg Tablet) 10 mg PO DAILY [facility] Last Admin: 02/18/23 10:38 Dose: 10 mg Hydroxyzine HCl (Hydroxyzine Hcl 25 Mg Tablet) 25 mg PO Q6H PRN PRN Reason: Anxiety Last Admin: 02/16/23 01:30 Dose: 25 mg Lamotrigine (Lamotrigine 25 Mg Tablet) 50 mg PO DAILY [facility] Last Admin: 02/18/23 10:38 Dose: 50 mg Magnesium Hydroxide (Milk Of Magnesia 30 Ml Oral.Susp) 30 ml PO DAILY PRN PRN Reason: Constipation Nicotine (Nicotine 21 Mg Patch.Td24) 21 mg TRANSDERMA DAILY PRN PRN Reason: smoking cessation Nicotine Polacrilex (Nicotine Polacrilex 2 Mg Gum) 4 mg BUCCAL Q2H PRN PRN Reason: Nicotine Cravings Olanzapine (Olanzapine 5 Mg Tablet) 5 mg PO TID PRN PRN Reason: agitation Last Admin: 02/18/23 03:42 Dose: 5 mg Sertraline HCl (Sertraline Hcl 50 Mg Tablet) 50 mg PO DAILY [facility] Last Admin: 02/18/23 10:38 Dose: 50 mg Trazodone HCl (Trazodone Hcl 50 Mg Tablet) 50 mg PO BEDTIME MRX1 PRN PRN Reason: Insomnia Last Admin: 02/17/23 21:10 Dose: 50 mg Allergies Allergies Allergy/AdvReac Type Severity Reaction Status Date / Time No Known Allergies Allergy Verified 02/11/23 17:12 Assessment & Plan Assessment & Plan (1) Schizoaffective disorder: Status: Acute Code(s): F25.9 - Schizoaffective disorder, unspecified (2) PTSD (post-traumatic stress disorder): Status: Acute Code(s): F43.10 - Post-traumatic stress disorder, unspecified Plan 22 yo female, history of probable schizoaffective disorder, PTSD, exhibiting psychotic symptoms and agitation at her home with family. Reports she takes Lamictal/Sertraline which we will initiate today. Plan: Collateral Contact Initiate Lamictal, Sertraline Monitor and probable antipsychotic initiation on 02/1302/13/23 Low carb diet-pt request Abilify 10 mg daily TSH, B12, Folate, EKG 02/14: Patient presents calm, cooperative, friendly but guarded. Patient stated, I feel okay. It's my grandmother's birthday tomorrow and I thought I'd be out by now since I've been going to groups and good . Observed responding to internal stimuli. Patient reports she hears the Devil day negative things to me . denies SI/HI/VH. Continue current tx plan. 02/15: Continue current plans and regimen 02/15: Continue current regimen and plans 02/17:TDN 02/19. Continue current regime and plan of care. 02/18: TDN 02/19. Difficult night with insomnia, agitation, aggression, response to IS- requiring Haldol 5 mg and Olanzapine 5 mg. Discontinue Abilify. Olanzapine 15 mg HS Informed Consent: further education needed Reason for continued inpatient stay Substantial Risk for: rapid decompensation Time Spent With Patient Time: Total time managing care of this patient today ____ minutes.
[2023-02-18 18:00] VITALS: BP 143/80; PULSE 95; RESP 18; TEMP 37.1; O2SAT 99
[2023-02-18] MEDS: OLANZapine 7.5 MG TABLET 15 MG PO (21:54)
[2023-02-19 09:02] VITALS: BP 133/63; PULSE 86; RESP 16; TEMP 36.6; O2SAT 94
[2023-02-19] MEDS: lamoTRIgine 25 MG TABLET 50 MG PO (09:04)
[2023-02-19] MEDS: Sertraline HCL 50 MG TABLET PO (09:04)
--- NOTE | 2023-02-19 16:22 | HO.PSYCHPN ---
Subjective Subjective Date of Service: 02/19/23 Reason For Visit: crisis Subjective Notes: 3 Day Healthcare Proxy: No Guardianship: No Medical Problems Affecting Mental Status: No Interim History: Pt continues to respond to internal stimuli, experience periods of confusion, disorganization. She was unable to organize herself to prepare for discharge. She was asked to retract her three day and remain in pt so further planning could be worked on with her which she agreed to. Parents did present to pick her up- they did visit. They report no knowledge of new boyfriend and pt's plan to live with him. They continue to request she return to the family home with them. Pt discussed anxiety with having boyfriend introduced to parents, wanting to create some new adult boundaries with them and make some changes in her life and plans, to include living with boyfriend. She has signed a new three day and we will use this time to continue to solidify her treatment and prepare her for discharge. Medication Compliance: Yes Side effects from medications: No Attending Groups: No Review of Systems Acute medical concerns: No Medical Review of Systems: unchanged Review of Systems Review of Systems Yes all other systems are reviewed and are negative Mental Status Exam Mental Status Exam Patient Appearance: Fatigued Patient Orientation: Person, Place, Time and Situation Level of Consciousness: Alert Patient Behavior: Talkative, Fatigued, Distractible and Good Eye Contact Mood Description: Constricted Affect Description: Constricted Patient Cognition Impaired: No Ability to Follow Directions: Fair Speech Pattern: Spontaneous Speech Memory Description: Episodic Impaired Hallucinations: Auditory Delusions: Not Present Perceptual Disturbances: Depersonalization Thought Process: Distracted and Goal Oriented Thought Content: positive for Circumstantial, positive for Goal Oriented, positive for Tangential and positive for Suicidal Ideation (denies) Depressive Symptoms: Increased Fatigue and Thoughts of /Suicide (denies SI plan or intent) Abnormal Motor Activity Signs and Symptoms: Restlessness Judgement: Fair Diagnostics Vital Signs (24Hr): Vital Signs - 24 hr 02/18/23 18:00 02/19/23 09:02 Temperature 98.7 F 97.9 F Pulse Rate 95 86 Respiratory Rate 18 16 Blood Pressure 143/80 H 133/63 Pulse Oximetry 99 94 Oxygen Delivery Method Room Air Room Air Medications Medications Current Medications Acetaminophen (Acetaminophen 325 Mg Tablet) 650 mg PO Q6H PRN PRN Reason: Headache/Pain Mild Scale (1-3) Last Admin: 02/17/23 19:24 Dose: 650 mg Al Hydroxide/Mg Hydroxide (Magnesium Hydrox/Alum Hydrox 30 Ml Oral.Susp) 30 ml PO Q6H PRN PRN Reason: Heartburn/Nausea Hydroxyzine HCl (Hydroxyzine Hcl 25 Mg Tablet) 25 mg PO Q6H PRN PRN Reason: Anxiety Last Admin: 02/16/23 01:30 Dose: 25 mg Lamotrigine (Lamotrigine 25 Mg Tablet) 50 mg PO DAILY JASON Last Admin: 02/19/23 09:04 Dose: 50 mg Magnesium Hydroxide (Milk Of Magnesia 30 Ml Oral.Susp) 30 ml PO DAILY PRN PRN Reason: Constipation Nicotine (Nicotine 21 Mg Patch.Td24) 21 mg TRANSDERMA DAILY PRN PRN Reason: smoking cessation Nicotine Polacrilex (Nicotine Polacrilex 2 Mg Gum) 4 mg BUCCAL Q2H PRN PRN Reason: Nicotine Cravings Olanzapine (Olanzapine 5 Mg Tablet) 5 mg PO TID PRN PRN Reason: agitation Last Admin: 02/18/23 03:42 Dose: 5 mg Olanzapine (Olanzapine 7.5 Mg Tablet) 15 mg PO BEDTIME JASON Last Admin: 02/18/23 21:54 Dose: 15 mg Sertraline HCl (Sertraline Hcl 50 Mg Tablet) 50 mg PO DAILY [facility] Last Admin: 02/19/23 09:04 Dose: 50 mg Trazodone HCl (Trazodone Hcl 50 Mg Tablet) 50 mg PO BEDTIME MRX1 PRN PRN Reason: Insomnia Last Admin: 02/17/23 21:10 Dose: 50 mg Allergies Allergies Allergy/AdvReac Type Severity Reaction Status Date / Time No Known Allergies Allergy Verified 02/11/23 17:12 Assessment & Plan Assessment & Plan (1) Schizoaffective disorder: Status: Acute Code(s): F25.9 - Schizoaffective disorder, unspecified (2) PTSD (post-traumatic stress disorder): Status: Acute Code(s): F43.10 - Post-traumatic stress disorder, unspecified Plan 22 yo female, history of probable schizoaffective disorder, PTSD, exhibiting psychotic symptoms and agitation at her home with family. Reports she takes Lamictal/Sertraline which we will initiate today. Plan: Collateral Contact Initiate Lamictal, Sertraline Monitor and probable antipsychotic initiation on 02/1302/13/23 Low carb diet-pt request Abilify 10 mg daily TSH, B12, Folate, EKG 02/14: Patient presents calm, cooperative, friendly but guarded. Patient stated, I feel okay. It's my grandmother's birthday tomorrow and I thought I'd be out by now since I've been going to groups and good . Observed responding to internal stimuli. Patient reports she hears the Devil day negative things to me . denies SI/HI/VH. Continue current tx plan. 02/15: Continue current plans and regimen 02/15: Continue current regimen and plans 02/17:TDN 02/19. Continue current regime and plan of care. 02/18: TDN 02/19. Difficult night with insomnia, agitation, aggression, response to IS- requiring Haldol 5 mg and Olanzapine 5 mg. Discontinue Abilify. Olanzapine 15 mg HS 02/19/23 TDN retracted and refiled. DC Trazodone, pt request Increase Olanzapine to 20 mg HS Patient educated on: therapeutic strategies Informed Consent: further education needed Reason for continued inpatient stay Substantial Risk for: rapid decompensation Time Spent With Patient Time: Total time managing care of this patient today ____ minutes.
--- NOTE | 2023-02-19 16:35 | PC.NURSE ---
I assumed care of this patient at 15:30, pt in currently in bedroom sitting on bed, in no apparent distress, respirations even and unlabored. Plan of care ongoing.
[2023-02-19 18:00] VITALS: BP 139/93; PULSE 88; TEMP 36.3; O2SAT 94
[2023-02-19] MEDS: OLANZapine 10 MG TABLET 20 MG PO (21:25)
[2023-02-19 21:30] VITALS: BP 148/72; PULSE 108; RESP 18; TEMP 36.8; O2SAT 98
[2023-02-20 08:00] VITALS: BP 128/88; PULSE 130; RESP 18; TEMP 36.4; O2SAT 98
[2023-02-20] MEDS: lamoTRIgine 25 MG TABLET 50 MG PO (09:40)
[2023-02-20] MEDS: Sertraline HCL 50 MG TABLET PO (09:40)
[2023-02-20 18:00] VITALS: BP 161/105; PULSE 89; RESP 16; TEMP 36.6; O2SAT 98
--- NOTE | 2023-02-20 18:52 | P.PNPSI_ITS ---
Subjective Subjective Date of Service: 02/20/23 Reason For Visit: crisis Subjective Notes: 3 Day Healthcare Proxy: No Guardianship: No Medical Problems Affecting Mental Status: No Interim History: Team reports minimal improvement with change to and titration of Zydis. Possibly more time is needed for efficacy eval Pt continues to respond to internal stimuli, has delusional content and has d isorganization. Team asks if she may be cheeking medications, will implement closer med checks for this sx. Pt today discussed her needing to leave to get back to school-family reports she has not been a student in a few semesters. Medication Compliance: Yes Side effects from medications: No Attending Groups: No Review of Systems Acute medical concerns: No Medical Review of Systems: unchanged Review of Systems Review of Systems Yes all other systems are reviewed and are negative (pt denies sx) Mental Status Exam Mental Status Exam Patient Appearance: Fatigued Patient Orientation: Person, Place, Time and Situation Level of Consciousness: Alert Patient Behavior: Talkative, Fatigued, Distractible and Good Eye Contact Mood Description: Constricted Affect Description: Constricted Patient Cognition Impaired: No Ability to Follow Directions: Fair Speech Pattern: Spontaneous Speech Memory Description: Episodic Impaired Hallucinations: Auditory Delusions: Not Present Perceptual Disturbances: Depersonalization Thought Process: Distracted and Goal Oriented Thought Content: positive for Circumstantial, positive for Goal Oriented, positive for Tangential and positive for Suicidal Ideation (denies) Depressive Symptoms: Increased Fatigue and Thoughts of /Suicide (denies SI plan or intent) Abnormal Motor Activity Signs and Symptoms: Restlessness Judgement: Fair Diagnostics Vital Signs (24Hr): Vital Signs - 24 hr 02/19/23 21:30 02/20/23 08:00 Temperature 98.3 F 97.5 F Pulse Rate 108 H 130 H Respiratory Rate 18 18 Blood Pressure 148/72 H 128/88 Pulse Oximetry 98 98 Oxygen Delivery Method Room Air Room Air Medications Medications Current Medications Acetaminophen (Acetaminophen 325 Mg Tablet) 650 mg PO Q6H PRN PRN Reason: Headache/Pain Mild Scale (1-3) Last Admin: 02/17/23 19:24 Dose: 650 mg Al Hydroxide/Mg Hydroxide (Magnesium Hydrox/Alum Hydrox 30 Ml Oral.Susp) 30 ml PO Q6H PRN PRN Reason: Heartburn/Nausea Hydroxyzine HCl (Hydroxyzine Hcl 25 Mg Tablet) 25 mg PO Q6H PRN PRN Reason: Anxiety Last Admin: 02/16/23 01:30 Dose: 25 mg Lamotrigine (Lamotrigine 25 Mg Tablet) 50 mg PO DAILY JASON Last Admin: 02/20/23 09:40 Dose: 50 mg Magnesium Hydroxide (Milk Of Magnesia 30 Ml Oral.Susp) 30 ml PO DAILY PRN PRN Reason: Constipation Nicotine (Nicotine 21 Mg Patch.Td24) 21 mg TRANSDERMA DAILY PRN PRN Reason: smoking cessation Nicotine Polacrilex (Nicotine Polacrilex 2 Mg Gum) 4 mg BUCCAL Q2H PRN PRN Reason: Nicotine Cravings Olanzapine (Olanzapine 5 Mg Tablet) 5 mg PO TID PRN PRN Reason: agitation Last Admin: 02/18/23 03:42 Dose: 5 mg Olanzapine (Olanzapine Odt 10 Mg Tab.Rapdis) 20 mg TRANSLINGU BEDTIME JASON Sertraline HCl (Sertraline Hcl 50 Mg Tablet) 50 mg PO DAILY JASON Last Admin: 02/20/23 09:40 Dose: 50 mg Allergies Allergies Allergy/AdvReac Type Severity Reaction Status Date / Time No Known Allergies Allergy Verified 02/11/23 17:12 Assessment & Plan Assessment & Plan (1) Schizoaffective disorder: Status: Acute Code(s): F25.9 - Schizoaffective disorder, unspecified (2) PTSD (post-traumatic stress disorder): Status: Acute Code(s): F43.10 - Post-traumatic stress disorder, unspecified Plan 22 yo female, history of probable schizoaffective disorder, PTSD, exhibiting psychotic symptoms and agitation at her home with family. Reports she takes Lamictal/Sertraline which we will initiate today. Plan: Collateral Contact Initiate Lamictal, Sertraline Monitor and probable antipsychotic initiation on 02/1302/13/23 Low carb diet-pt request Abilify 10 mg daily TSH, B12, Folate, EKG 02/14: Patient presents calm, cooperative, friendly but guarded. Patient stated, I feel okay. It's my grandmother's birthday tomorrow and I thought I'd be out by now since I've been going to groups and good . Observed responding to internal stimuli. Patient reports she hears the Devil day negative things to me . denies SI/HI/VH. Continue current tx plan. 02/15: Continue current plans and regimen 02/15: Continue current regimen and plans 02/17:TDN 02/19. Continue current regime and plan of care. 02/18: TDN 02/19. Difficult night with insomnia, agitation, aggression, response to IS- requiring Haldol 5 mg and Olanzapine 5 mg. Discontinue Abilify. Olanzapine 15 mg HS 02/19/23 TDN retracted and refiled. DC Trazodone, pt request Increase Olanzapine to 20 mg HS 02/20/23 Continue current regime, possibly needing more time to teke effect. Patient educated on: medication risk/benefits Informed Consent: further education needed Reason for continued inpatient stay Substantial Risk for: rapid decompensation Time Spent With Patient Time: Total time managing care of this patient today ____ minutes.
[2023-02-20] MEDS: cloNIDine HCL 0.1 MG TABLET PO (19:31)
[2023-02-20] MEDS: OLANZapine ODT 10 MG TAB.RAPDIS 20 MG TRANSLINGU (20:48)
[2023-02-20 22:00] VITALS: BP 140/88; PULSE 90
[2023-02-21] MEDS: Sertraline HCL 50 MG TABLET PO (08:15)
[2023-02-21] MEDS: lamoTRIgine 25 MG TABLET 50 MG PO (08:15)
[2023-02-21 09:00] VITALS: BP 136/94; PULSE 82; RESP 18; TEMP 36.1; O2SAT 98
[2023-02-21] MEDS: Acetaminophen 325 MG TABLET 650 MG PO (13:35)
--- NOTE | 2023-02-21 15:23 | HO.PSYCHPN ---
Subjective Subjective Date of Service: 02/21/23 Reason For Visit: crisis Subjective Notes: 3 Day Healthcare Proxy: No Guardianship: No Medical Problems Affecting Mental Status: No Interim History: Continues with response to internal stimuli Today, irritable, worried about receiving a large bill for services. Discussed insurance process. No real changes with Olanzapine, will change management administrator. Medication Compliance: Yes Side effects from medications: No Attending Groups: No Review of Systems Acute medical concerns: No Medical Review of Systems: unchanged Review of Systems Review of Systems Yes all other systems are reviewed and are negative (pt denies sx) Mental Status Exam Mental Status Exam Patient Appearance: Fatigued Patient Orientation: Person, Place, Time and Situation Level of Consciousness: Alert Patient Behavior: Talkative, Fatigued, Distractible and Good Eye Contact Mood Description: Constricted Affect Description: Constricted Patient Cognition Impaired: No Ability to Follow Directions: Fair Speech Pattern: Spontaneous Speech Memory Description: Episodic Impaired Hallucinations: Auditory Delusions: Not Present Perceptual Disturbances: Depersonalization Thought Process: Distracted and Goal Oriented Thought Content: positive for Circumstantial, positive for Goal Oriented, positive for Tangential and positive for Suicidal Ideation (denies) Depressive Symptoms: Increased Fatigue and Thoughts of /Suicide (denies SI plan or intent) Abnormal Motor Activity Signs and Symptoms: Restlessness Judgement: Fair Diagnostics Vital Signs (24Hr): Vital Signs - 24 hr 02/20/23 18:00 02/20/23 22:00 02/21/23 09:00 Temperature 97.8 F 97 F Pulse Rate 89 90 82 Respiratory Rate 16 18 Blood Pressure 161/105 H 140/88 H 136/94 H Pulse Oximetry 98 98 Oxygen Delivery Method Room Air Room Air Medications Medications Current Medications Acetaminophen (Acetaminophen 325 Mg Tablet) 650 mg PO Q6H PRN PRN Reason: Headache/Pain Mild Scale (1-3) Last Admin: 02/21/23 13:35 Dose: 650 mg Al Hydroxide/Mg Hydroxide (Magnesium Hydrox/Alum Hydrox 30 Ml Oral.Susp) 30 ml PO Q6H PRN PRN Reason: Heartburn/Nausea Hydroxyzine HCl (Hydroxyzine Hcl 25 Mg Tablet) 25 mg PO Q6H PRN PRN Reason: Anxiety Last Admin: 02/16/23 01:30 Dose: 25 mg Lamotrigine (Lamotrigine 25 Mg Tablet) 50 mg PO DAILY JASON Last Admin: 02/21/23 08:15 Dose: 50 mg Magnesium Hydroxide (Milk Of Magnesia 30 Ml Oral.Susp) 30 ml PO DAILY PRN PRN Reason: Constipation Nicotine (Nicotine 21 Mg Patch.Td24) 21 mg TRANSDERMA DAILY PRN PRN Reason: smoking cessation Nicotine Polacrilex (Nicotine Polacrilex 2 Mg Gum) 4 mg BUCCAL Q2H PRN PRN Reason: Nicotine Cravings Olanzapine (Olanzapine 5 Mg Tablet) 5 mg PO TID PRN PRN Reason: agitation Last Admin: 02/18/23 03:42 Dose: 5 mg Olanzapine (Olanzapine Odt 10 Mg Tab.Rapdis) 20 mg TRANSLINGU BEDTIME JASON Last Admin: 02/20/23 20:48 Dose: 20 mg Sertraline HCl (Sertraline Hcl 50 Mg Tablet) 50 mg PO DAILY JASON Last Admin: 02/21/23 08:15 Dose: 50 mg Allergies Allergies Allergy/AdvReac Type Severity Reaction Status Date / Time No Known Allergies Allergy Verified 02/11/23 17:12 Assessment & Plan Assessment & Plan (1) Schizoaffective disorder: Status: Acute Code(s): F25.9 - Schizoaffective disorder, unspecified (2) PTSD (post-traumatic stress disorder): Status: Acute Code(s): F43.10 - Post-traumatic stress disorder, unspecified Plan 22 yo female, history of probable schizoaffective disorder, PTSD, exhibiting psychotic symptoms and agitation at her home with family. Reports she takes Lamictal/Sertraline which we will initiate today. Plan: Collateral Contact Initiate Lamictal, Sertraline Monitor and probable antipsychotic initiation on 02/1302/13/23 Low carb diet-pt request Abilify 10 mg daily TSH, B12, Folate, EKG 02/14: Patient presents calm, cooperative, friendly but guarded. Patient stated, I feel okay. It's my grandmother's birthday tomorrow and I thought I'd be out by now since I've been going to groups and good . Observed responding to internal stimuli. Patient reports she hears the Devil day negative things to me . denies SI/HI/VH. Continue current tx plan. 02/15: Continue current plans and regimen 02/15: Continue current regimen and plans 02/17:TDN 02/19. Continue current regime and plan of care. 02/18: TDN 02/19. Difficult night with insomnia, agitation, aggression, response to IS- requiring Haldol 5 mg and Olanzapine 5 mg. Discontinue Abilify. Olanzapine 15 mg HS 02/19/23 TDN retracted and refiled. DC Trazodone, pt request Increase Olanzapine to 20 mg HS 02/21/23 Discontinue Olanzapine Haldol Conc 10 mg HS Patient educated on: medication risk/benefits Informed Consent: further education needed Reason for continued inpatient stay Substantial Risk for: rapid decompensation Time Spent With Patient Time: Total time managing care of this patient today ____ minutes.
[2023-02-21 16:20] VITALS: BP 137/96; PULSE 104; RESP 16; TEMP 36.3; O2SAT 99
[2023-02-21] MEDS: Haloperidol Lactate Oral Conc 10 MG/5 ML ORAL.CONC PO (19:42)
[2023-02-22 08:00] VITALS: BP 125/70; PULSE 74; RESP 18; TEMP 36.2; O2SAT 98
--- NOTE | 2023-02-22 08:53 | P.PNPSI_ITS ---
Subjective Subjective Date of Service: 02/22/23 Reason For Visit: crisis Interim History: met with patient; discussed with team Patient talking to herself, sometimes out loud in front of others when others are trying to talk to her. She reports that her depression is a little better though she still quite anxious. She says she still has AH but less. She currently denies any SI. Patient asks handbook writer to make sure there is nothing she can overdose on and nothing that is addictive since she has a history of SI and her family has a history of addiction Mental Status Exam Mental Status Exam Narrative: Pt is alert and oriented; behavior is for the most part cooperative, friendly and calm however patient can also become triggered and loud; patient is not in distress; dressed in hospital attire with unkempt hair; mood is described as better and affect congruent; eye contact appropriate; Speech is normal rate, volume and prosody and not pressured; intermittently some psychomotor agitation/retardation present; thought process is goal directed; Thought content is on internally preoccupied but otherwise on treatment; able to be pertinent to relevant topics; denies any SI/HI. Patient internally preoccupied and reports AH though says is less. Patients insight and judgment impaired though improving Diagnostics Vital Signs (24Hr): Vital Signs - 24 hr 02/21/23 09:00 02/21/23 16:20 Temperature 97 F 97.3 F Pulse Rate 82 104 H Respiratory Rate 18 16 Blood Pressure 136/94 H 137/96 H Pulse Oximetry 98 99 Oxygen Delivery Method Room Air Room Air Medications Medications Current Medications Acetaminophen (Acetaminophen 325 Mg Tablet) 650 mg PO Q6H PRN PRN Reason: Headache/Pain Mild Scale (1-3) Last Admin: 02/21/23 13:35 Dose: 650 mg Al Hydroxide/Mg Hydroxide (Magnesium Hydrox/Alum Hydrox 30 Ml Oral.Susp) 30 ml PO Q6H PRN PRN Reason: Heartburn/Nausea Haloperidol Lactate (Haloperidol Lactate Oral Conc 10 Mg/5 Ml Oral.Conc) 10 mg PO BEDTIME JASON Last Admin: 02/21/23 19:42 Dose: 10 mg Hydroxyzine HCl (Hydroxyzine Hcl 25 Mg Tablet) 25 mg PO Q6H PRN PRN Reason: Anxiety Last Admin: 02/16/23 01:30 Dose: 25 mg Lamotrigine (Lamotrigine 25 Mg Tablet) 50 mg PO DAILY JASON Last Admin: 02/21/23 08:15 Dose: 50 mg Magnesium Hydroxide (Milk Of Magnesia 30 Ml Oral.Susp) 30 ml PO DAILY PRN PRN Reason: Constipation Nicotine (Nicotine 21 Mg Patch.Td24) 21 mg TRANSDERMA DAILY PRN PRN Reason: smoking cessation Nicotine Polacrilex (Nicotine Polacrilex 2 Mg Gum) 4 mg BUCCAL Q2H PRN PRN Reason: Nicotine Cravings Olanzapine (Olanzapine 5 Mg Tablet) 5 mg PO TID PRN PRN Reason: agitation Last Admin: 02/18/23 03:42 Dose: 5 mg Sertraline HCl (Sertraline Hcl 50 Mg Tablet) 50 mg PO DAILY [facility] Last Admin: 02/21/23 08:15 Dose: 50 mg Allergies Allergies Allergy/AdvReac Type Severity Reaction Status Date / Time No Known Allergies Allergy Verified 02/11/23 17:12 Assessment & Plan Assessment & Plan (1) Schizoaffective disorder: Status: Acute Code(s): F25.9 - Schizoaffective disorder, unspecified (2) PTSD (post-traumatic stress disorder): Status: Acute Code(s): F43.10 - Post-traumatic stress disorder, unspecified Plan 22 yo female, history of probable schizoaffective disorder, PTSD, exhibiting psychotic symptoms and agitation at her home with family. Reports she takes Lamictal/Sertraline which we will initiate today. Plan: Collateral Contact Initiate Lamictal, Sertraline Monitor and probable antipsychotic initiation on 02/1302/13/23 Low carb diet-pt request Abilify 10 mg daily TSH, B12, Folate, EKG 02/14: Patient presents calm, cooperative, friendly but guarded. Patient stated, I feel okay. It's my grandmother's birthday tomorrow and I thought I'd be out by now since I've been going to groups and good . Observed responding to internal stimuli. Patient reports she hears the Devil day negative things to me . denies SI/HI/VH. Continue current tx plan. 02/15: Continue current plans and regimen 02/15: Continue current regimen and plans 02/17:TDN 02/19. Continue current regime and plan of care. 02/18: TDN 02/19. Difficult night with insomnia, agitation, aggression, response to IS- requiring Haldol 5 mg and Olanzapine 5 mg. Discontinue Abilify. Olanzapine 15 mg HS 02/19/23 TDN retracted and refiled. DC Trazodone, pt request Increase Olanzapine to 20 mg HS 02/22 Zyprexa discontinued and yesterday patient got 1st dose of Haldol 10 mg q.h.s.. Today patient remains internally preoccupied and talking to herself, sometimes out loud in front of others when others are trying to talk to her. She reports that her depression is a little better though she still quite anxious. She says she still has AH but less. She currently denies any SI. Patient asks handbook writer to make sure there is nothing she can overdose on and nothing that is addictive since she has a history of SI and her family has a history of addiction -will leave current Haldol 10 mg q.h.s. dose since she has only got it 1 time; however will increase as clinically indicated Patient educated on: diagnosis and medication risk/benefits Informed Consent: understands and further education needed Reason for continued inpatient stay Substantial Risk for: inability to function Time Spent With Patient Time: Total time managing care of this patient today ____ minutes.
[2023-02-22] MEDS: lamoTRIgine 25 MG TABLET 50 MG PO (09:43)
[2023-02-22] MEDS: Sertraline HCL 50 MG TABLET PO (09:43)
[2023-02-22] MEDS: OLANZapine 5 MG TABLET PO (10:27)
[2023-02-22] MEDS: Acetaminophen 325 MG TABLET 650 MG PO (10:35)
[2023-02-22 18:00] VITALS: BP 129/82; PULSE 88; RESP 20; TEMP 36.2; O2SAT 98
[2023-02-22] MEDS: Haloperidol Lactate Oral Conc 10 MG/5 ML ORAL.CONC PO (20:50)
[2023-02-23 08:00] VITALS: BP 135/87; PULSE 75; RESP 16; TEMP 36.4; O2SAT 99
[2023-02-23] MEDS: Sertraline HCL 50 MG TABLET PO (08:23)
[2023-02-23] MEDS: lamoTRIgine 25 MG TABLET 50 MG PO (08:23)
--- NOTE | 2023-02-23 15:41 | HO.PSYCHPN ---
Subjective Subjective Date of Service: 02/23/23 Reason For Visit: crisis Interim History: Met with patient; discussed with team Patient lying in bed on approach. Patient wanted to discuss medications because she wants to make sure that she is not on anything that will hurt her baby in the 3rd trimester. Patient informed that medications can cause problems in . 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 Patient is sleepy and did not want to talk further Mental Status Exam Mental Status Exam Narrative: Pt is alert and oriented; behavior is for the most part cooperative, friendly and calm however patient can also become triggered and loud; patient is not in distress; dressed in hospital attire with unkempt hair; mood is described as ok and affect congruent; eye contact appropriate; Speech is normal rate, volume and prosody and not pressured; intermittently some psychomotor agitation/retardation present; thought process is goal directed; Thought content is on internally preoccupied but otherwise on treatment; able to be pertinent to relevant topics; denies any SI/HI. Patient internally preoccupied and reports AH though says is less. Patients insight and judgment impaired Diagnostics Vital Signs (24Hr): Vital Signs - 24 hr 02/22/23 18:00 02/23/23 08:00 Temperature 97.2 F 97.6 F Pulse Rate 88 75 Respiratory Rate 20 16 Blood Pressure 129/82 135/87 Pulse Oximetry 98 99 Oxygen Delivery Method Room Air Room Air Medications Medications Current Medications Acetaminophen (Acetaminophen 325 Mg Tablet) 650 mg PO Q6H PRN PRN Reason: Headache/Pain Mild Scale (1-3) Last Admin: 02/22/23 10:35 Dose: 650 mg Al Hydroxide/Mg Hydroxide (Magnesium Hydrox/Alum Hydrox 30 Ml Oral.Susp) 30 ml PO Q6H PRN PRN Reason: Heartburn/Nausea Haloperidol Lactate (Haloperidol Lactate Oral Conc 10 Mg/5 Ml Oral.Conc) 10 mg PO BEDTIME JASON Last Admin: 02/22/23 20:50 Dose: 10 mg Hydroxyzine HCl (Hydroxyzine Hcl 25 Mg Tablet) 25 mg PO Q6H PRN PRN Reason: Anxiety Last Admin: 02/16/23 01:30 Dose: 25 mg Lamotrigine (Lamotrigine 25 Mg Tablet) 50 mg PO DAILY JASON Last Admin: 02/23/23 08:23 Dose: 50 mg Magnesium Hydroxide (Milk Of Magnesia 30 Ml Oral.Susp) 30 ml PO DAILY PRN PRN Reason: Constipation Nicotine (Nicotine 21 Mg Patch.Td24) 21 mg TRANSDERMA DAILY PRN PRN Reason: smoking cessation Nicotine Polacrilex (Nicotine Polacrilex 2 Mg Gum) 4 mg BUCCAL Q2H PRN PRN Reason: Nicotine Cravings Olanzapine (Olanzapine 5 Mg Tablet) 5 mg PO TID PRN PRN Reason: agitation Last Admin: 02/22/23 10:27 Dose: 5 mg Sertraline HCl (Sertraline Hcl 50 Mg Tablet) 50 mg PO DAILY JASON Last Admin: 02/23/23 08:23 Dose: 50 mg Allergies Allergies Allergy/AdvReac Type Severity Reaction Status Date / Time No Known Allergies Allergy Verified 02/11/23 17:12 Assessment & Plan Assessment & Plan (1) Schizoaffective disorder: Status: Acute Code(s): F25.9 - Schizoaffective disorder, unspecified (2) PTSD (post-traumatic stress disorder): Status: Acute Code(s): F43.10 - Post-traumatic stress disorder, unspecified Plan 22 yo female, history of probable schizoaffective disorder, PTSD, exhibiting psychotic symptoms and agitation at her home with family. Reports she takes Lamictal/Sertraline which we will initiate today. Plan: Collateral Contact Initiate Lamictal, Sertraline Monitor and probable antipsychotic initiation on 02/1302/13/23 Low carb diet-pt request Abilify 10 mg daily TSH, B12, Folate, EKG 02/14: Patient presents calm, cooperative, friendly but guarded. Patient stated, I feel okay. It's my grandmother's birthday tomorrow and I thought I'd be out by now since I've been going to groups and good . Observed responding to internal stimuli. Patient reports she hears the Devil day negative things to me . denies SI/HI/VH. Continue current tx plan. 02/15: Continue current plans and regimen 02/15: Continue current regimen and plans 02/17:TDN 02/19. Continue current regime and plan of care. 02/18: TDN 02/19. Difficult night with insomnia, agitation, aggression, response to IS- requiring Haldol 5 mg and Olanzapine 5 mg. Discontinue Abilify. Olanzapine 15 mg HS 02/19/23 TDN retracted and refiled. DC Trazodone, pt request Increase Olanzapine to 20 mg HS 02/22 Zyprexa discontinued and yesterday patient got 1st dose of Haldol 10 mg q.h.s.. Today patient remains internally preoccupied and talking to herself, sometimes out loud in front of others when others are trying to talk to her. She reports that her depression is a little better though she still quite anxious. She says she still has AH but less. She currently denies any SI. Patient asks technical writer to make sure there is nothing she can overdose on and nothing that is addictive since she has a history of SI and her family has a history of addiction -will leave current Haldol 10 mg q.h.s. dose since she has only got it 1 time; however will increase as clinically indicated 02/23 patient remains with limited insight and judgment Patient educated on: diagnosis and medication risk/benefits Informed Consent: further education needed Reason for continued inpatient stay Substantial Risk for: rapid decompensation Time Spent With Patient Time: Total time managing care of this patient today ____ minutes.
[2023-02-23 18:00] VITALS: BP 127/90; PULSE 84; RESP 16; TEMP 36.4; O2SAT 100
[2023-02-23] MEDS: Haloperidol Lactate Oral Conc 10 MG/5 ML ORAL.CONC PO (21:10)
[2023-02-23] MEDS: OLANZapine 5 MG TABLET PO (21:10)
[2023-02-24 06:00] VITALS: BP 148/84; PULSE 103; TEMP 36.5; O2SAT 97
[2023-02-24] MEDS: lamoTRIgine 25 MG TABLET 50 MG PO (08:39)
[2023-02-24] MEDS: OLANZapine 5 MG TABLET PO (08:40)
[2023-02-24] MEDS: Sertraline HCL 50 MG TABLET PO (08:40)
--- NOTE | 2023-02-24 14:44 | P.DS_ITS ---
DS: Providers Provider Date of Service: 02/24/23 Date of admission: 02/11/23 15:41 Date of discharge: 02/24/23 Primary care physician: Nicki Olson MD Admitting clinician: Jolie Zapata Attending physician on admission: Arjun Perez Consults: 02/11/23 17:12 Consult to Hospitalist Routine Comment: Consulting Provider: Hospitalist Reason For Exam: admission physical Attending physician on discharge: Arjun Perez Discharging clinician: Jolie Zapata DS: Diagnosis Discharge Diagnosis (1) Schizoaffective disorder: Status: Acute (2) PTSD (post-traumatic stress disorder): Status: Acute DS: Medications Discharge Medications Home Medications: Previous Rx's Medication Instructions Recorded lamotrigine 25 mg tablet 50 mg (2 x 25 mg) PO DAILY #60 tabs 02/19/23 sertraline 50 mg tablet 50 mg PO DAILY #30 tabs 02/19/23 trazodone 50 mg tablet 50 mg PO BEDTIME MRX1 PRN Insomnia 02/19/23 #60 tabs haloperidol 10 mg tablet 10 mg PO BEDTIME #30 tabs 02/24/23 Mental Status Exam Mental Status Exam Patient Appearance: Fatigued Patient Orientation: Person, Place, Time and Situation Level of Consciousness: Alert Patient Behavior: Talkative, Fatigued, Distractible and Good Eye Contact Mood Description: Constricted Affect Description: Constricted Patient Cognition Impaired: No Ability to Follow Directions: Fair Speech Pattern: Spontaneous Speech Memory Description: Episodic Impaired Hallucinations: Auditory Delusions: Not Present Perceptual Disturbances: Depersonalization Thought Process: Distracted and Goal Oriented Thought Content: positive for Circumstantial, positive for Goal Oriented, positive for Tangential and positive for Suicidal Ideation (denies) Depressive Symptoms: Increased Fatigue and Thoughts of /Suicide (denies SI plan or intent) Abnormal Motor Activity Signs and Symptoms: Restlessness Judgement: Fair DS: Summary Hospital Course Hospital Course: Admission to adult psychiatry for exacerbation of schizoaffective disorder and PTSD. Pt reported auditory and visual perceptual alterations, SI and medication noncompliance. She had a recent eval on 02/04/23 and was released without a plan. Her mother requested this re-evaluation. Medications were evaluated and adjusted. Pt was able to benefit from the milieu. She was discharged on a three day notice of intent and will return to [facility] for her out patient care. Status at Discharge Functional status at discharge: independent ambulation Overall status at discharge: patient is progressing back to baseline Time Spent with Patient Time attestation: Total time managing care of this patient today ____ minutes. Time spent: Greater than 30 minutes Discharge Plan Discharge Anticipated Discharge Date/Time: 02/24/23 12:00 Patient Disposition: Home, Self-Care Discharge Diagnosis: PTSD Schizoaffective Disorder Referrals: [facility] w Aditi Kidd [Other] - 03/12/23 4:00 pm (Telehealth.) [facility] [Other] - 02/27/23 5:30 pm (Telehealth. Talk teo Becerra about seeing her once a week, so she can get you into her schedule. ) [facility] [Other] - 02/25/23 (fax- [phone] Rn will call to set a solid time for the visit on 02/25/23. ) [facility] [Other] (Walk in services available) Discharge Medications: New trazodone 50 mg Tablet 50 mg PO BEDTIME MRX1 PRN (Reason: Insomnia) Qty: 60 0RF haloperidol 10 mg tablet 10 mg PO BEDTIME Qty: 30 0RF Continued lamotrigine 25 mg tablet 50 mg PO DAILY Qty: 60 0RF sertraline 50 mg tablet 50 mg PO DAILY Qty: 30 0RF Discontinued triamcinolone acetonide 0.025 % cream TOPICAL BID Discharge Orders: Discharge Order (Routine); Ordered 02/24/23 Ordered By: Jolie Zapata Diet: Advance to usual diet Activity on Discharge: As tolerated Stand Alone Forms: Patient Portal Discharge page, Community Support Care Plan Goals: Mood and Behavioral Stabilization Health Concerns: Mood and Behavioral Stabilization Plan of Treatment: Attend scheduled appointments Take medications as directed Call and or return as needed Assessment: Pt discharges today on a three day notice of intent. Discharge Date/Time: 02/24/23 11:49
== END 2023-02-24 11:49 | disposition home or self-care (01) | DRG 750 ==
PROVIDERS: Physician Assistant; Admitting Provider Psychiatry & Neurology Psychiatry; PCP Internal Medicine; Visit Provider Clinical Nurse Specialist Psychiatric/Mental Health, Adult
DX: F25.9 Schizoaffective disorder, unspecified (principal); Z91.148 Patient's other noncompliance with medication regimen for other reason; F43.10 Post-traumatic stress disorder, unspecified; Z79.899 Other long term (current) drug therapy
CPT/HCPCS: 0353U; 36415; 80061; 81001; 82607; 82746; 83036; 84443; 93005

== ENCOUNTER → 2023-02-11 15:41 | Outpatient (BNV) | payer MEDICAID, SELFPAY | PROVIDERS: Admitting Provider Psychiatry & Neurology Psychiatry; PCP Internal Medicine; Visit Provider Physician Assistant | DX: Z00.00 Encounter for general adult medical examination without abnormal findings (principal); R35.0 Frequency of micturition | CPT/HCPCS: 99222; 99499 ==

== ENCOUNTER → 2023-02-11 15:41 | Outpatient (BNV) | payer OTHER, SELFPAY | PROVIDERS: Admitting Provider Psychiatry & Neurology Psychiatry; PCP Internal Medicine; Visit Provider Clinical Nurse Specialist Psychiatric/Mental Health, Adult | DX: F25.0 Schizoaffective disorder, bipolar type (principal); F43.11 Post-traumatic stress disorder, acute | CPT/HCPCS: 99231; 99232 ==